=== PATIENT | male | born 1970 | race Caucasian/White ===

== ENCOUNTER 2018-09-09 12:03 | Emergency (ER) | payer OTHER ==
[~2018-09-09] VITALS: Ht 182.9 cm; Wt 122.7 kg
[2018-09-09] MEDS ORDERED: TIZA4CAP (12:12)
[2018-09-09] MEDS ORDERED: ZOLP10TA2 (12:12)
[2018-09-09] MEDS ORDERED: IBUP80TA (12:12)
[2018-09-09 13:15] VITALS: BP 145/94
[2018-09-09] MEDS ORDERED: methylPREDNISolone INJ 125 MG/2 ML VIAL (J2930) IM ONE (13:15)
[2018-09-09] MEDS ORDERED: KETOROLAC 60 MG/2 ML VIAL (J1885) IM ONE (13:15)
[2018-09-09] MEDS ORDERED: PRED10TA2 PO (13:39)
[2018-09-09] MEDS ORDERED: CYCL10TA PO (13:40)
== END 2018-09-09 13:48 | disposition home or self-care (01) ==
LOC: M ED 12:03
DX: M54.41 Lumbago with sciatica, right side (principal)
CPT/HCPCS: 96372; 99283; J1885; J2930

== ENCOUNTER 2018-09-13 11:36 | Emergency (ER) | payer OTHER ==
[~2018-09-13] VITALS: Ht 182.9 cm; Wt 122.7 kg
[~2018-09-13 11:36] MED LIST: CYCL10TA PO; IBUP80TA; PRED10TA2 PO; TIZA4CAP; ZOLP10TA2
[2018-09-13 11:37] VITALS: BP 180/105
[2018-09-13] MEDS ORDERED: GABA-843 PO (14:18)
[2018-09-13] MEDS ORDERED: KETO10TAB PO (14:18)
[2018-09-13] MEDS ORDERED: KETOROLAC TROMETHAMINE 10 MG TAB PO ONE (14:30)
[2018-09-13] MEDS ORDERED: GABAPENTIN 300 MG CAP PO ONE (14:30)
== END 2018-09-13 14:42 | disposition home or self-care (01) ==
LOC: M ED 11:36
DX: M54.16 Radiculopathy, lumbar region (principal); Z79.52 Long term (current) use of systemic steroids; Z79.899 Other long term (current) drug therapy

== ENCOUNTER → 2021-07-12 | Outpatient (CLI) | payer OTHER ==
[~2021-07-12] MED LIST changes: +APPL300T4 PO; +ASHW300C PO; +CURC1POW2; +CYCL-707 PO; -CYCL10TA PO; +GABA-282 PO; +KETO10TAB PO; +VITMTA PO
== END ==
LOC: M LABSMTC 10:03
PROVIDERS: ATTEND Anesthesiology
DX: Z01.812 Encounter for preprocedural laboratory examination (principal); Z20.822 Contact with and (suspected) exposure to COVID-19

== ENCOUNTER 2021-07-17 09:12 | Day surgery (SDC) | payer OTHER ==
[~2021-07-17] VITALS: Ht 182.9 cm; Wt 120.2 kg
[~2021-07-17 09:12] MED LIST changes: +LIDOCAINE 2% 100MG/5ML SDV (FOR ANES.) As Ordered ONE; +NS 1,000 ML IV ONE; +propofoL 200 MG/20 ML VIAL As Ordered ONE
--- OUTSIDE RECORDS SUMMARY | 2021-07-17 09:18 | CCD | Continuity of Care Document ---
Author Author Slade HANKINS M.D. Organization Unknown Address [address] [place] [address] Phone [phone] Care Team Providers Care Workforce Services Representative Name Role Phone Jon Schultz MD [facility] [phone] Problems Active Problems Provider Date Screening for malignant neoplasm of colon Moe ku M.D. Onset: 05/21/2021 Social History Type Date Description Comments Sex Unknown ETOH Use Occasionally Tobacco Use Start: Unknown Patient has never smoked Allergies and adverse reactions Description No Known Drug Allergies Medications Active Medications SIG Qnty Indications Ordering Provide r Date Sutab [id number] Tablets as directed 1box Moe Hankins M.D. 05/21/2021 History Medications No Active Medications Moe vazquez M.D. 05/21/2021 - 05/21/2021 Immunizations Description No Information Available Vital Signs Date Vital Result Comment 05/21/2021 2:43pm Height 72 inches 6'0" Weight 273.00 lb BP Systolic 124 mmHg BP Diastolic 98 mmHg Heart Rate 93 /min BMI (Body Mass Index) 37.0 kg/m2 Weight 123.833 kg Body Temperature 97.3 F Results Description No Information Available Procedures Date Code Description Status 05/21/2021 11332 Office/Outpatient New Low MDM 30 -44 Minutes Completed Medical Devices Description No Information Available Encounters Type Date Location Provider Dx Diagnosis Office Visit 05/21/2021 2:15p Main Office Moe Hankins M.D. Z 12.11 Encounter for screening for malignant neoplasm of colon Assessments Date Code Description Provider 05/21/2021 Z12.11 Screening for malignant neoplasm of colon Moe Hankins M.D. Plan of Treatment Future Appointment(s):* 07/17/2021 2:00 pm - Moe Hankins M.D. at Main Office 05/21/2021 - Moe Hankins M.D.* Z12.11 Screening for malignant neoplasm of colon* Comments:* 51 yo wm who presents for a screening colonoscopy. No c/o abdominal pain, weight loss, change in bowel habits, or rectal bleeding. No family h/o colon cancer. No h/o chest pain, or sob. Plan:1.Schedule patient for a colonoscopy.2.Informed consent given to the patient.3.Pt. advised to stop aspirin,plavix, and anticoagulants at least 3 to 7 days prior to the procedure. Functional Status Description No Information Available Mental Status Description No Information Available Referrals Description No Information Available
--- OUTSIDE RECORDS SUMMARY | 2021-07-17 09:18 | CCD ---
Author Author [facility] Organization [facility] Address Unknown Phone Unavailable Care Team Providers Care Laborer Filter Plant Name Role Phone Mary Hankins MD Unavailable Unavailable Mary Hankins MD Unavailable Unavailable Mary Hankins MD Unavailable Unavailable Mary Hankins MD Unavailable Unavailable Mary Hankins MD Unavailable Unavailable Mary Hankins MD Unavailable Unavailable Mary Hankins MD Unavailable Unavailable Mary Hankins MD Unavailable Unavailable Mary Hankins MD Unavailable Unavailable Mary Hankins MD Unavailable Unavailable Mary Hankins MD Unavailable Unavailable Mary Hankins MD Unavailable Unavailable Mary Hankins MD Unavailable Unavailable Mary Hankins MD Unavailable Unavailable Mary Hankins MD Unavailable Unavailable Mary Hankins MD Unavailable Unavailable Mary Hankins MD Unavailable Unavailable Mary Hankins MD Unavailable Unavailable Mary Hankins MD Unavailable Unavailable Mary Hankins MD Unavailable Unavailable Mary Hankins MD Unavailable Unavailable Mary Hankins MD Unavailable Unavailable Mary Hankins MD Unavailable Unavailable Mary Hankins MD Unavailable Unavailable Mary Hankins MD Unavailable Unavailable Mary Hankins MD Unavailable Unavailable Mary Hankins MD Unavailable Unavailable Nhi, S Moe MD Unavailable Unavailable Nhi, S Moe MD Unavailable Unavailable Nhi, S Moe MD Unavailable Unavailable Nhi, S Moe MD Unavailable Unavailable Nhi, S Moe MD Unavailable Unavailable Nhi, S Moe MD Unavailable Unavailable Nhi, S Moe MD Unavailable Unavailable Nhi, S Moe MD Unavailable Unavailable Nhi, S Moe MD Unavailable Unavailable Nhi, S Moe MD Unavailable Unavailable Nhi, S Moe MD Unavailable Unavailable Nhi, S Moe MD Unavailable Unavailable Nhi, S Moe MD Unavailable Unavailable Nhi, S Moe MD Unavailable Unavailable Nhi, S Moe MD Unavailable Unavailable Nhi, S Moe MD Unavailable Unavailable Nhi, S Moe MD Unavailable Unavailable Nhi, S Moe MD Unavailable Unavailable Nhi, S Moe MD Unavailable Unavailable Nhi, S Moe MD Unavailable Unavailable Nhi, S Moe MD Unavailable Unavailable Nhi, S Moe MD Unavailable Unavailable Nhi, S Moe MD Unavailable Unavailable Nhi, S Moe MD Unavailable Unavailable Re-disclosure Warning The records that you are about to access may contain information from federally-assisted alcohol or drug abuse programs. If such information is present, then the following federally mandated warning applies: This information has been disclosed to you from records protected by federal confidentiality rules (42 CFR part 2). The federal rules prohibit you from making any further disclosure of this information unless further disclosure is expressly permitted by the written consent of the person to whom it pertains or as otherwise permitted by 42 CFR part 2. A general authorization for the release of medical or other information is NOT sufficient for this purpose. The Federal rules restrict any use of the information to criminally investigate or prosecute any alcohol or drug abuse patient.The records that you are about to access may contain highly sensitive health information, the redisclosure of which is protected by Article 27-F of the [facility] Public Health law. If you continue you may have access to information: Regarding HIV / AIDS; Provided by facilities licensed or operated by the [facility] Office of Mental Health; or Provided by the [facility] Office for People With Developmental Disabilities. If such information is present, then the following [facility] mandated warning applies: This information has been disclosed to you from confidential records which are protected by state law. State law prohibits you from making any further disclosure of this information without the specific written consent of the person to whom it pertains, or as otherwise permitted by law. Any unauthorized further disclosure in violation of state law may result in a fine or mcfp sentence or both. A general authorization for the release of medical or other information is NOT sufficient authorization for further disc losure. Family History Family Member Name Family Member Gender Family Member Status Date o f Status Description Data Source(s) Unknown Male Problem [facility] ([facility]) Encounters Encounter Providers Location Date Indications Data Source(s ) Outpatient Attender: Moe Hankins MD Main Office 05/21/2021 02:15:00 PM EDT [facility] ([facility]) Immunizations Vaccine Date Status Description Data Source(s) COVID-19 VACCINE Moderna 12/03/2020 12:00:00 AM EDT completed [facility] Vaccine Series Complete: YESThis Data wa s Submitted to [facility] Via [employer]. COVID-19 VACC,MRNA(MODERNA)/PF 12/03/2020 12:00:00 AM EDT completed [facility] COVID-19 VACCINE, MRNA-1273, LNP-S (MODERNA)/PF 11/02/2020 1 2:00:00 AM EDT completed [facility] Medications Medication Brand Name Start Date Product Form Dose Route Admi nistrative Instructions Pharmacy Instructions Status Indications Reaction Description Data Source(s) 5 mg 06/25/2021 12:00:00 AM EST tablet 30 TAKE ONE TABLET BY MOUTH AT BEDTIME TAKE ONE TABLET BY MOUTH AT BEDTIME SOLD: 06/26/2021 [facility] 1.479-0.188- 0.225 gram 05/22/2021 12:00:00 AM EDT tablet 24 TAKE DIRECTED TAKE DIRECTED SOLD: 05/24/2021 [facility] No Active Medications 05/21/2021 12:00:00 AM EDT completed [facility] ([facility]) Sutab Sutab 05/21/2021 12:00:00 AM EDT active [facility] ([facility]) Insurance Providers Payer name Policy type / Coverage type Policy ID Covered libertarian ID Covered libertarian's relationship to tello Policy Tello Plan Information [employer] () Workers Compensation [id number] Self W [id number] [employer] ([employer]) Workers Compensation [id number] Self [id number] [employer] (WC) Workers Compensation [id number] Self W [id number] [employer] ([place]) Workers Compensation [id number] Self [id number] [facility] Ins Workers Compensation [id number] Self [id number] [facility] Ins Workers Compensation [id number] Self [id number] UMR [facility] [id number] SP [id number] STATE INSURANCE F [id number] SP [id number] UMR O [id number] S [id number] UMR O [id number] S [id number] UMR [facility] [id number] SP [id number] O UNAVAILABLE UNAVAILA BLE [employer] [id number] SP [id number] [facility] Ins Workers Compensation [id number] Self [id number] [facility] Ins Workers Compensation [id number] Self [id number] Problems, Conditions, and Diagnoses Code Display Name Description Problem Type Effective Dates Data Source(s) [id number] Screening for malignant neoplasm of colo n Screening for malignant neoplasm of colon Problem 05/21/2021 12:00:00 AM EDT [facility] ([facility]) Surgeries/Procedures Procedure Description Date Indications Data Source(s) OFFICE OUTPATIENT NEW 30 MINUTES 05/21/2021 12:00:00 A M EDT [facility] ([facility]) Results ID Date Data Source [id number] 07/12/2021 09:55:00 AM EST [facility] Name Value Range Interpretation Code Description Data Edie rce(s) Supporting Document(s) SARS-CoV-2 (COVID-19) RNA [Presence] in Respiratory specimen by FRANK with probe detection Not Detected [facility] This lab was ordered by [facility] and reported by [facility]. Procedure Social History No Information Vital Signs ID Date Data Source UNK Name Value Range Interpretation Code Description Data Source(s) Body height 72 [in_i] 72 [in_i] [facility] 6'0" Body weight 273.00 [lb_av] 273.00 [lb_av] [facility] T ([facility]) Systolic blood pressure 124 mm[Hg] 124 mm[Hg] M [facility]ENT ([facility]) Diastolic blood pressure 98 mm[Hg] 98 mm[Hg] [facility] ([facility]) Heart rate 93 /min 93 /min [facility]) Body mass index (BMI) [Ratio] 37.0 kg/m2 37.0 k g/m2 [facility] ([facility]) Body weight 123.833 kg 123.833 kg [facility] Body temperature 97.3 [degF] 97.3 [degF] [facility] ([facility])
--- OUTSIDE RECORDS SUMMARY | 2021-07-17 09:18 | CCD | Continuity of Care Document ---
Author Author Slade HANKINS M.D. Organization Unknown Address [address] [place] [address] Phone [phone] Care Team Providers Care Barrel Header Name Role Phone Jon Schultz MD [facility] [phone] Problems Active Problems Provider Date Screening for malignant neoplasm of colon Moe ku M.D. Onset: 05/21/2021 Social History Type Date Description Comments Sex Unknown ETOH Use Occasionally Tobacco Use Start: Unknown Patient has never smoked Allergies and adverse reactions Description No Known Drug Allergies Medications Active Medications SIG Qnty Indications Ordering Provide r Date Sutab [id number] Tablets as directed 1box Moe Hankins M.D. [...] Available Procedures Date Code Description Status 05/21/2021 44620 Office/Outpatient New Low MDM 30 -44 Minutes [...]
--- OUTSIDE RECORDS SUMMARY | 2021-07-17 09:18 | CCD | Continuity of Care Document ---
Author Author Slade HANKINS M.D. Organization Unknown Address [address] [place] [address] Phone [phone] Care Team Providers Care Clinical Cytogeneticist Name Role Phone Jon Schultz MD [facility] [phone] Problems Active Problems Provider Date Screening for malignant neoplasm of colon Moe ku M.D. Onset: 05/21/2021 Social History Type Date Description Comments Sex Unknown ETOH Use Occasionally Tobacco Use Start: Unknown Patient has never smoked Allergies and adverse reactions Description No Known Drug Allergies Medications Active Medications SIG Qnty Indications Ordering Provide r Date Sutab [id number] Tablets as directed 1box Moe Hankins M.D. [...] Available Procedures Date Code Description Status 05/21/2021 54801 Office/Outpatient New Low MDM 30 -44 Minutes [...]
--- OUTSIDE RECORDS SUMMARY | 2021-07-17 09:18 | CCD | Continuity of Care Document ---
Author Author Slade HANKINS M.D. Organization Unknown Address [address] [place] [address] Phone [phone] Care Team Providers Care Flying Instructor Name Role Phone Jon Schultz MD [facility] [phone] Problems Active Problems Provider Date Screening for malignant neoplasm of colon Moe ku M.D. Onset: 05/21/2021 Social History Type Date Description Comments Sex Unknown ETOH Use Occasionally Tobacco Use Start: Unknown Patient has never smoked Allergies and adverse reactions Description No Known Drug Allergies Medications Active Medications SIG Qnty Indications Ordering Provide r Date Sutab [id number] Tablets as directed 1box Moe Hankins M.D. [...] Available Procedures Date Code Description Status 05/21/2021 74468 Office/Outpatient New Low MDM 30 -44 Minutes [...]
--- NOTE | 2021-07-17 10:49 | ROOR ---
Patient Name: Slade Tamayo Procedure Date: 07/17/2021 10:27 AM Date of : 1970 Age: 51 Room: [facility] Gender: Male Note Status: Finalized Procedure: Total Colonoscopy to Cecum + ileoscopy Indications: Screening for colorectal malignant neoplasm Providers: Moe Hankins MD Referring MD: Jon Schultz MD Requesting Provider: Medicines: Monitored Anesthesia Care Complications: No immediate complications. Procedure: Pre-Anesthesia Assessment: - The heart rate, respiratory rate, oxygen saturations, blood pressure, adequacy of pulmonary ventilation, and response to care were monitored throughout the procedure. The Colonoscope was introduced through the anus and advanced to the terminal ileum, with identification of the appendiceal orifice and IC valve. The colonoscopy was performed without difficulty. The patient tolerated the procedure well. The quality of the bowel preparation was excellent. Findings: The perianal and digital rectal examinations were normal. Non-bleeding internal hemorrhoids were found during retroflexion. The hemorrhoids were small and Grade I (internal hemorrhoids that do not prolapse). Scattered small-mouthed diverticula were found in the recto-sigmoid colon, sigmoid colon and descending colon. The terminal ileum appeared normal. No other significant abnormalities were identified in a careful examination of the remainder of the colon. Impression: - Non-bleeding internal hemorrhoids. - Diverticulosis in the recto-sigmoid colon, in the sigmoid colon and in the descending colon. - The examined portion of the ileum was normal. - No specimens collected. - The exam was otherwise normal to the cecum. Recommendation: - Patient has a contact number available for emergencies. The signs and symptoms of potential delayed complications were discussed with the patient. Return to normal activities tomorrow. Written discharge instructions were provided to the patient. - High fiber diet. - Discharge patient to home. - Continue present medications. - Repeat colonoscopy in 10 years for screening purposes. - Return to referring physician. - The findings and recommendations were discussed with the patient. Procedure Code(s): --- Professional --- 62407, Colonoscopy, flexible; diagnostic, including collection of specimen(s) by brushing or washing, when performed (separate procedure) Diagnosis Code(s): --- Professional --- Z12.11, Encounter for screening for malignant neoplasm of colon K64.0, First degree hemorrhoids K57.30, Diverticulosis of large intestine without perforation or abscess without bleeding CPT copyright 2019 [employer]. All rights reserved. The codes documented in this report are preliminary and upon wood polisher review may be revised to meet current compliance requirements. Moe Hankins MD Moe Hankins MD 07/17/2021 10:49:05 AM Electronically signed by Moe Hankins MD Number of Addenda: 0 Note Initiated On: 07/17/2021 10:27 AM Estimated Blood Loss: Estimated blood loss: none.
[2021-07-17 11:00] VITALS: BP 122/79
== END 2021-07-17 11:11 | disposition home or self-care (01) ==
LOC: M OPP 09:12
PROVIDERS: ATTEND Internal Medicine Gastroenterology
DX: Z12.11 Encounter for screening for malignant neoplasm of colon (principal); K57.30 Diverticulosis of large intestine without perforation or abscess without bleeding; K64.0 First degree hemorrhoids; R12 Heartburn; Z87.891 Personal history of nicotine dependence